=== PATIENT | female | born 1965 ===

== ENCOUNTER 2020-04-27 11:45 | Inpatient (IN) | payer OTHER ==
[~2020-04-27] VITALS: Ht 160 cm; Wt 70.3 kg
[2020-04-27] MEDS ORDERED: NORVASC2.5 MG PO (14:16)
[2020-04-27] MEDS ORDERED: ZOVIRAX400 MG PO (14:16)
[2020-05-03] MEDS ORDERED: MEDROLPACK PO (13:44)
[2020-05-03] MEDS ORDERED: COLACE100 MG PO (13:44)
[2020-05-03] MEDS ORDERED: DIAZEPAM5 MG PO (13:46)
[2020-05-03] MEDS ORDERED: PERCOCET 5-3251 EACH PO (13:46)
== END 2020-05-04 12:10 | disposition home or self-care (01) | DRG 472 ==
LOC: O/R 05-03 05:15 → SURH 05-03 17:31
PROVIDERS: ADMIT Orthopaedic Surgery Orthopaedic Surgery of the Spine; ATTEND Orthopaedic Surgery Orthopaedic Surgery of the Spine
PROC: 0RT30ZZ Resection of Cervical Vertebral Disc, Open Approach (ICD-10-PCS; 2020-05-03)
PROC: 0RG20A0 Fusion of 2 or more Cervical Vertebral Joints with Interbody Fusion Device, Anterior Approach, Anterior Column, Open Approach (ICD-10-PCS; principal; 2020-05-03 10:00)
DX: M48.02 Spinal stenosis, cervical region (principal); M50.01 Cervical disc disorder with myelopathy, high cervical region